=== PATIENT | female | born 1975 | race Asian ===

== ENCOUNTER 2019-08-19 16:58 | Emergency (ER) | payer MEDICARE ==
[~2019-08-19] VITALS: Ht 157.5 cm; Wt 57.7 kg
[2019-08-19 19:30] VITALS: BP 137/92
== END 2019-08-19 19:59 | disposition home or self-care (01) ==
LOC: EMS 16:58
DX: J02.9 Acute pharyngitis, unspecified (principal); F17.210 Nicotine dependence, cigarettes, uncomplicated; Z88.0 Allergy status to penicillin; Z88.5 Allergy status to narcotic agent; Z90.89 Acquired absence of other organs